=== PATIENT | female | born 1930 | race Caucasian/White ===

== ENCOUNTER 2016-09-13 05:41 | Inpatient (IN) ==
--- NOTE | 2016-09-13 06:21 | PROVIDER DOCUMENTATION ---
HPI-Musculoskeletal Pain/Inj - GENERAL Chief Complaint: General Adult Stated Complaint: JERKING MOVEMENTS ALL OVER Time Seen by Provider: 09/13/16 06:06 - HX OF PRESENT ILLNESS-MUSKULOSKELTAL Nature of Presenting Problem: 85 y/o WF with multiple medical problems presenting to the ED from [facility] with a one day h/o spastic muscle movements. Pt states the "jerking" is sharp and painful, but does not quantify intensity. Pt reports previous episodes of jerking, but son disputes these claims. Pt reports no aggravating or alleviating factors. ROS is pertinent for diarrhea and decreased appetite that is described as longstanding. Quality of Pain: reports: sharp Onset/Duration: 24 hours ago Timing: still present, intermittent Modifying Factors: improves with: nothing Any recent injury?: Yes Review of Systems - Adult - REVIEW OF SYSTEMS - ADULT Constitutional: reports: other (decreased appetite) Eyes: reports: no symptoms reported Ears, Nose, Mouth & Throat: reports: no symptoms reported Cardiovascular: reports: no symptoms reported Respiratory: reports: no symptoms reported Gastrointestinal: reports: no symptoms reported Genitourinary: reports: no symptoms reported Musculoskeletal: reports: other Integumentary: reports: no symptoms reported Neurological: reports: other (spastic jerking) Psychiatric: reports: no symptoms reported Endocrine: reports: no symptoms reported Hematologic/Lymphatic: reports: no symptoms reported Allergic/Immunologic: reports: no symptoms reported Past History - Adult - PAST MEDICAL HISTORY-ADULT Review of Records: reports: Old Records Reviewed, Nursing Assessment Review, Medications Reviewed Major Childhood Illnesses: reports: denies history Cardiovascular: reports: cardiac disease, HTN, hyperlipidemia, AL, pacemaker Respiratory: reports: denies history Gastrointestinal: reports: denies history Obstetrical/Gynecological: reports: denies history Genitourinary: reports: denies history Musculoskeletal: reports: arthritis, other Neurological: reports: dementia, TIA, other Psychiatric: reports: depression Endocrine/Immune: reports: denies history Other Conditions: reports: denies history - PRIOR SURGERIES/PROCEDURES Surgical/Procedure History: reports: pacemaker, other - IMMUNIZATION STATUS Childhood Immunizations: See Nurse Assessment Flu Vaccine: See Nurse Assessment - FAMILY HISTORY Family History: reviewed, not pertinent - SOCIAL HISTORY Smoking: denies Substance Use: none/never Alcohol Use Frequency: never Living Situation: care facility Physical Exam-Injury Related - Physical Exam-Injury Related Initial Vital Signs Reviewed: Yes General Appearance: appears well, alert, no apparent distress, other ( generalized spastic jerking noted). negative: slow to respond, obtunded Eyes: PERRL/EOMI, pink conjunctivae. negative: sclera injected, scleral icterus Head, Ears, Nose, Mouth & Throat: normocephalic/atraumatic, moist mucous membranes. negative: pharyngeal erythema, tonsillar exudate Neck: non-tender, full range of motion, supple. negative: pain on movement, swelling Respiratory: chest non-tender, lungs clear, normal breath sounds. negative: crackles, rales, rhonchi, stridor, wheezing Cardiovascular: normal peripheral pulses, regular rate, rhythm. negative: irregularly irregular Chest/Breast: no tenderness, other (cardiac device at left anterior chest) Abdominal Exam: normal bowel sounds, non tender, soft. negative: distended, guarding, rigid, rebound, tenderness Female Genitalia/Pelvic Exam: deferred Rectal Exam: deferred Lymphatic: no adenopathy. negative: cervical node tenderness, enlargement Extremity: negative: deformity, erythema, pulse deficit Integumentary: normal color, warm/dry, blanching. negative: crepitus Psych/Mental Status: normal mood/affect, normal thought content, normal thought process, oriented x 3. negative: anxious, paranoid, tearful - Glascow Coma Score Best Eye Response (Goddard): (4) open spontaneously Best Verbal Response (Ankit): (5) oriented Best Motor Response (Ankit): (6) obeys commands Progress - PLAN OF CARE/RESULTS Progress/Plan/Lab Results: Vital Signs - 8 hr 09/13/16 08:42 09/13/16 09:32 09/13/16 11:27 Temperature 98.1 F Pulse Rate 52 L 52 L 52 L Respiratory Rate 17 16 16 Blood Pressure 153/58 142/74 142/57 O2 Sat by Pulse Oximetry 97 98 99 09/13/16 12:22 Temperature Pulse Rate 64 Respiratory Rate 17 Blood Pressure 128/55 O2 Sat by Pulse Oximetry 96 Laboratory Results - last 24 hr 09/13/16 09/13/16 09/13/16 05:45 05:45 05:45 WBC 7.75 RBC 3.89 L Hgb 11.7 L Hct 35.0 L MCV 90.0 MCH 30.1 MCHC 33.4 RDW Std Deviation 13.8 Plt Count 263 MPV 11.3 H Immature Gran % (Auto) 0.3 Neut % (Auto) 71.0 Lymph % (Auto) 18.2 L Dolores % (Auto) 7.7 Eos % (Auto) 2.5 Baso % (Auto) 0.3 Immature Gran # (Auto) 0.02 Neut # (Auto) 5.51 Lymph # (Auto) 1.41 Dolores # (Auto) 0.60 H Eos # (Auto) 0.19 Baso # (Auto) 0.02 Sodium 145 Potassium 3.0 L Chloride 106 Carbon Dioxide 20 L Anion Gap 19 BUN 34 H Creatinine 1.3 H Estimated GFR/1.73 m2 39 BUN/Creatinine Ratio 26 Glucose 94 Calculated Osmolality 296 Calcium 9.6 Magnesium Total Bilirubin 0.33 AST 11 ALT 9 L Alkaline Phosphatase 74 Total Protein 6.7 Albumin 3.7 Globulin 3.0 Albumin/Globulin Ratio 1.2 TSH 1.40 Free T4 1.32 Urine Source Urine Color Urine Turbidity Urine pH Ur Specific [place] Urine Protein Ur Glucose (Stick) Ur Ketones (Stick) Urine Blood Urine Nitrite Urine Bilirubin Urobilinogen Dipstick Urine Leukocytes Urine WBC (Auto) Urine RBC (Auto) U Epithel Cells (Auto) Urine Bacteria (Auto) 09/13/16 09/13/16 05:45 07:52 WBC RBC Hgb Hct MCV MCH MCHC RDW Std Deviation Plt Count MPV Immature Gran % (Auto) Neut % (Auto) Lymph % (Auto) Dolores % (Auto) Eos % (Auto) Baso % (Auto) Immature Gran # (Auto) Neut # (Auto) Lymph # (Auto) Dolores # (Auto) Eos # (Auto) Baso # (Auto) Sodium Potassium Chloride Carbon Dioxide Anion Gap BUN Creatinine Estimated GFR/1.73 m2 BUN/Creatinine Ratio Glucose Calculated Osmolality Calcium Magnesium 1.7 Total Bilirubin AST ALT Alkaline Phosphatase Total Protein Albumin Globulin Albumin/Globulin Ratio TSH Free T4 Urine Source CLEAN CATCH Urine Color YELLOW Urine Turbidity CLEAR Urine pH 6.0 Ur Specific [place] 1.009 Urine Protein NEGATIVE Ur Glucose (Stick) NEGATIVE Ur Ketones (Stick) NEGATIVE Urine Blood NEGATIVE Urine Nitrite NEGATIVE Urine Bilirubin NEGATIVE Urobilinogen Dipstick NORMAL Urine Leukocytes LARGE A Urine WBC (Auto) TNTC A Urine RBC (Auto) <10 U Epithel Cells (Auto) <10 Urine Bacteria (Auto) NEGATIVE Orders Category Date Time Status CHEST-PORTABLE [RAD] Stat Exams 09/13/16 06:15 Draft CBC WITH DIFF [HEME] Stat Lab 09/13/16 05:45 Completed CMP [COMPREHENSIVE METABOLIC PANEL] [CHEM] Stat Lab 09/13/16 05:45 Completed FREE T4 Stat Lab 09/13/16 05:45 Completed MAGNESIUM [CHEM] Stat Lab 09/13/16 05:45 Completed TSH Stat Lab 09/13/16 05:45 Completed URINALYSIS W/POSS RFLX CULT-1 [URINALYSIS] Stat Lab 09/13/16 07:52 Completed URINE CULTURE [RM] Routine Lab 09/13/16 08:47 Received Potassium Chloride E.r. [Klor-Con] Med 09/13/16 07:38 Discontinued 20 meq PO NOW ONE EKG [EKG] Stat Ther 09/13/16 06:04 Draft Result Diagrams: 09/13/16 05:45 09/13/16 05:45 - EKG 1 Time of EKG reading by physician:: 06:10 EKG Read and Signed by:: Andrea Deleon Jr Rate: 50 Rhythm: AV dual - paced [place]: normal [place] Interval: normal ST Wave: normal - CONSULTS/PCP/HOSPITALIST Notification #1 *Consult/PCP/Hospitalist*: Dr. Cowart Time Discussed: 14:25 Consult Disposition: Admit Departure - Departure Time of Disposition Decision: 14:26 DIAGNOSIS: Extrapyramidal and movement disorder, Hypokalemia, Abnormal urinalysis Disposition: ADMITTED INPATIENT 09 Certified Medical Emergency: Emergent Condition: Good Referrals and Follow-Ups: Yusra Rose MD [Primary Care Provider] -
--- NOTE | 2016-09-13 06:26 | EKG Report ---
Test Performed on : 09/13/2016 06:10:17 AM Test Reason : Bradycardia/Paced Rhythm Blood Pressure : / mmHG Vent. Rate : 050 BPM Atrial Rate : 050 BPM P-R Int : 138 ms QRS Dur : 138 ms QT Int : 492 ms P-R-T Axes : 000 -68 041 degrees QTc Int : 448 ms AV dual-paced rhythm with occasional ventricular-paced complexes Abnormal ECG When compared with ECG of 18-JUL-2016 14:02, Electronic ventricular pacemaker has replaced Sinus rhythm. Unconfirmed Result
[2016-09-13 07:06] LABS: MANUAL DIFF NEEDED? NO
[2016-09-13 07:09] LABS: BASO% 0.3 % (0.0-0.8); EOS# 0.19 X1000 (0.0-0.7); EOS% 2.5 % (0.0-10.0); HEMOGLOBIN 11.7 g/dL (12.0-16.0); IMM GRAN# 0.02 X1000 (0.0-0.04); IMM GRAN% 0.3 % (0.0-0.5); LYMPH# 1.41 X1000 (1.2-3.4); LYMPH% 18.2 % (20.5-51.1); MCH 30.1 PG (27-31); MCHC 33.4 g/dL (33-37); MONO% 7.7 % (1.7-9.3); MPV 11.3 FL (7.4-10.4); PLT 263 X1000 (130-400); RBC 3.89 XMIL (4.2-5.4)
[2016-09-13 07:35] LABS: ALBUMIN 3.7 g/dL (3.5-5.0); CALCIUM 9.6 mg/dL (8.8-10.2); TOTAL BILIRUBIN 0.33 mg/dL (0.20-1.00); TOTAL PROTEIN 6.7 g/dL (6.3-8.3)
[2016-09-13] MEDS ORDERED: KLOR-CON PO ONE (07:38)
[2016-09-13 07:43] LABS: FREE T4 1.32 ng/dL (0.93-1.70)
[2016-09-13 08:20] LABS: URINE MICRO REVIEW NEEDED? NO; URINE SOURCE CLEAN CATCH
[2016-09-13 08:34] LABS: BILIRUBIN URINE NEGATIVE (NEGATIVE); BLOOD URINE NEGATIVE (NEGATIVE); COLOR YELLOW; GLUCOSE URINE NEGATIVE (NEGATIVE); LEUKOCYTES URINE LARGE (NEGATIVE); NITRITE URINE NEGATIVE (NEGATIVE); PROTEIN URINE NEGATIVE (NEGATIVE); SP GRAVITY URINE 1.009; TURBIDITY URINE CLEAR (CLEAR); UROBILINOGEN URINE NORMAL (NORMAL)
[2016-09-13 08:36] LABS: UR EPITHELIAL CELLS <10 /HPF (<10); URINE BACTERIA NEGATIVE /HPF; URINE CULTURE NEEDED? YES; URINE RBC <10 /HPF (<10); URINE WBC TNTC /HPF (<10)
--- NOTE | 2016-09-13 10:28 | Diag Imaging Result Document ---
PROCEDURE NAME: CHEST-PORTABLE - 09/13/2016 SINGLE FRONTAL RADIOGRAPH OF THE CHEST: COMPARISON: 08/28/2016. FINDINGS: There is suggestion of mild fibrosis at the right lung apex that has been stable as compared to a few prior studies. The lungs are clear otherwise. There is no definite pleural fluid collection. Cardiac silhouette and central vasculature are essentially unremarkable. There is a left-sided pacemaker in stable position. IMPRESSION: Stable chest with no definite acute pathology.
[2016-09-13] MEDS: NS 1,000 ML IV SCH (15:26)
[2016-09-13] MEDS ORDERED: NS 1,000 ML ONE (15:32)
[2016-09-13] MEDS: ROCEPHIN 1 GM/NS 1 GM/50 ML IVPB IV SCH (15:40)
[2016-09-13] MEDS ORDERED: ATIVAN IV PRN (16:07)
--- NOTE | 2016-09-13 16:20 | Diag Imaging Result Document ---
PROCEDURE NAME: HEAD W/O CONTRAST - 09/13/[address]: A CT dose reduction protocol was used. COMPARISON: 07/12/2016. FINDINGS: The ventricles and sulci are normal in size and contour. No intracranial mass or hemorrhage. Stable minimal periventricular white matter chronic microvascular disease. IMPRESSION: No acute disease or change from prior. MTDD
[2016-09-13 16:25] LABS: CALCIUM 9.7 mg/dL (8.8-10.2); POTASSIUM 3.1 mmol/L (3.5-5.1)
--- NOTE | 2016-09-13 17:20 | HISTORY AND PHYSICAL ---
PRIMARY CARE PHYSICIAN: Dr. Rose. CHIEF COMPLAINT: Involuntary shaking/seizure activity. HISTORY OF PRESENT ILLNESS: Mrs. Crespo is an 85-year-old female with a history of hypertension, hyperlipidemia, CAD, dementia, glaucoma, recent CVA, sick sinus syndrome status post Bi-V ICD who presents from shelter with involuntary shaking and seizure- like activity. The patient is not accompanied by anybody and she is a poor historian, so history is difficult to obtain. She states that sometime either yesterday or today she started having these involuntary shaking movements. She will clench up and began to shake. This passes within a few seconds but happens multiple times an hour. Indeed while we are talking the patient had these episodes and it is difficult for her to communicate when she would be shaking. She reports that she lost bowel and bladder function earlier today, and she did bite the inside of her mouth. She denies any chest pain or shortness of breath. No lower extremity edema. No recent fever, chills, cough or congestion. When she got to the ER she had labs and diagnostics done. She is mildly anemic with mild renal insufficiency and hypokalemia and UTI. We are ordering a head CT. Otherwise her vitals are stable and she is now going to be admitted. PAST MEDICAL HISTORY: 1. Sick sinus syndrome status post Bi-V ICD. 2. Hyperlipidemia. 3. Hypertension. 4. Nonobstructive coronary disease. 5. Paroxysmal atrial flutter. 6. Depression. 7. Glaucoma. SURGICAL HISTORY: Bi-V ICD. FAMILY HISTORY: Significant for cancer in her mother. SOCIAL HISTORY: She lives in a shelter, [facility] I believe. There is no history of alcohol, tobacco or drug use. She is . ALLERGIES: She is allergic to Bactrim. HOME MEDICATIONS: Norvasc 5 mg b.i.d. Bumex 1 mg daily. Coreg 12.5 mg b.i.d. Lanoxin 125 mg daily. Cardizem CD 180 mg p.o. q.a.m. Donepezil 5 mg daily. Neurontin 300 mg b.i.d. Prinivil 20 mg a.m. Protonix 40 mg b.i.d. Zoloft 50 mg a.m. Zocor 20 mg q.p.m. REVIEW OF SYSTEMS: Ten point review of systems obtained and found to be negative with the exception of the HPI. PHYSICAL EXAMINATION: VITAL SIGNS: Blood pressure is 129/53, heart rate is 64. Respiratory rate is 18, O2 saturation 97% on room air. Temperature is 98.1 degrees. GENERAL: This is an elderly and frail appearing 85-year-old female, lying in the hospital bed in no acute distress. NEUROLOGIC: The patient is awake and she is slightly disoriented, she does not know the date. She follows commands with generalized weakness but nothing focal. She does have multiple periods of drawing up and shaking which happens randomly and lasts only for a few seconds. HEENT: Head is atraumatic and normocephalic. Her pupils are equal, round, reactive to light. Oral mucosa is a bit dry. Trachea is midline. CHEST: Clear to auscultation bilaterally. CV: Regular rate and rhythm. S1, S2 is noted. GI: Soft, nondistended, nontender. Bowel sounds positive. EXTREMITIES: Without edema, clubbing or cyanosis. Pulses are palpable bilaterally. DIAGNOSTIC DATA: Chest x-ray shows stable chest with no definite acute pathology. EKG shows AV pacer. WBC 7.75, hemoglobin 11.7, hematocrit 35, platelet count 263,000. Sodium 145, potassium 3, chloride 106, CO2 20. Anion gap 19. BUN 34, creatinine 1.3, glucose 94, calcium 9.6, magnesium 1.7. LFTs within normal limits. Albumin 3.7, TSH 1.4. UA shows [place] leukocytes and that too numerous to count, WBC. ASSESSMENT AND PLAN: 1. Seizure-like activity: Unclear of the etiology, it is unlikely to be true seizures. She does not seem to be on any medicines that cause extrapyramidal side effects but we are going to check a head CT and consult with Neurology. We will continue IV fluid hydration and treatment of her underlying UTI. 2. Urinary tract infection: Sensitive to Rocephin last time she was here. Organism was E. coli. Will continue Rocephin now and urine cultures are pending. 3. Paroxysmal atrial flutter: She is now AV paced. She is on digoxin, Cardizem and Coreg. We will continue all of these. Check a digoxin level. 4. Acute kidney injury: Creatinine 1.3. We are going to hold off on her Bumex and her lisinopril and add light IV fluid hydration. 5. Anemia: We going to check iron studies and treat accordingly. 6. Deep vein thrombosis prophylaxis will be provided with low-dose Lovenox once her head CT is done and found to be normal. Further recommendations to follow. Dictated by DANI Dailey for Anthony Flores MD cc: DANI Dailey MD [facility]
[2016-09-13 19:06] LABS: IRON SATURATION 23 %; TIBC 288 ug/dL; TOTAL IRON 67 ug/dL (49-151); UNBOUND IRON 221 ug/dL (112-346)
[2016-09-13] MEDS: NEURONTIN PO SCH (21:32)
[2016-09-13] MEDS: COREG PO SCH (21:32)
[2016-09-13] MEDS: NORVASC PO SCH (21:32)
[2016-09-13] MEDS: ZOCOR PO SCH (21:32)
[2016-09-13] MEDS: PROTONIX PO SCH (21:32)
[2016-09-13] MEDS: LOVENOX SUBQ SCH (21:36)
[2016-09-14] MEDS: NS 1,000 ML IV SCH ×2 (00:28→14:21)
[2016-09-14 07:21] LABS: HEMATOCRIT 32.8 % (37.0-47.0); HEMOGLOBIN 11.1 g/dL (12.0-16.0); MCH 30.7 PG (27-31); MCHC 33.8 g/dL (33-37); MCV 90.6 FL (81-99); MPV 10.5 FL (7.4-10.4); RBC 3.62 XMIL (4.2-5.4)
[2016-09-14 07:26] LABS: INR 1.02; PROTIME 10.7 Seconds (9.2-11.7)
[2016-09-14 07:39] LABS: AGAP 15; BUN 22 mg/dL (8-22); CALCIUM 8.9 mg/dL (8.8-10.2); CHLORIDE 110 mmol/L (98-107); COSMO 288; HDL 31 mg/dL (45-65); LDL 135 mg/dL; POTASSIUM 3.2 mmol/L (3.5-5.1); SODIUM 143 mmol/L (136-145); TCO2 18 mmol/L (25-35); TRIGLYCERIDES 176 mg/dL (35-135); VLDL 35 mg/dL
[2016-09-14] MEDS ORDERED: KLOR-CON PO ONE (07:52)
[2016-09-14] MEDS: LANOXIN PO SCH (08:52)
[2016-09-14] MEDS: NEURONTIN PO SCH ×2 (08:52→20:33)
[2016-09-14] MEDS: COREG PO SCH ×2 (08:53→20:33)
[2016-09-14] MEDS: NORVASC PO SCH ×2 (08:53→20:33)
[2016-09-14] MEDS: CARDIZEM CD PO SCH (08:53)
[2016-09-14] MEDS: ZOLOFT PO SCH (08:53)
[2016-09-14] MEDS: PROTONIX PO SCH ×2 (08:53→20:32)
[2016-09-14] MEDS: LOVENOX SUBQ SCH ×2 (08:53→20:33)
[2016-09-14] MEDS: ARICEPT PO SCH (08:53)
[2016-09-14] MEDS ORDERED: DULCOLAX PR ONE (09:00)
[2016-09-14] MEDS: MIRALAX PO SCH (11:30)
--- NOTE | 2016-09-14 14:25 | PROGRESS NOTE ---
DATE: 09/14/2016 SUBJECTIVE: This patient states that she is feeling better. Family members at the bedside. She is not complaining of nausea or vomiting. No diarrhea. She has been complaining of constipation. OBJECTIVE: Vital Signs: Temperature 97.7 degrees, pulse 71, respiratory rate 18, blood pressure 155/51, oxygen saturation 100% on room air. HEENT: Head normocephalic. No trauma. PERRLA. Neck: Supple. No JVD. No masses. Central trachea. Chest: Clear to auscultation. No wheezing. No rales. Cardiovascular: RRR. No murmurs. Abdomen: Soft, nontender, nondistended. No hepatosplenomegaly. Extremities: No edema. No clubbing. No cyanosis. Neurological: The patient is alert and oriented x3. No focal neurological deficits. LABORATORY: WBC 6.6, hemoglobin 11.1, hematocrit 32.8, platelets 264,000. Sodium 143, potassium 3.2, chloride 110, bicarbonate 18, BUN 22, creatinine 0.9, glucose 91, calcium 8.9. ASSESSMENT AND PLAN: 1. Seizure-like activity, unclear of the etiology. I do not think this patient has been having seizures. This patient has been dehydrated and also hypokalemic, questionable extrapyramidal side effects, but we are going to check the medications again and Neurology will evaluate this patient. 2. Urinary tract infection sensitive to Rocephin last time she was here. We will continue with the same antibiotics. 3. Paroxysmal atrial flutter. She is now AV paced. She is on digoxin, Cardizem, and Coreg. I am going to continue these medications. Digoxin level is normal. 4. Acute kidney injury, resolved. 5. Anemia. Aware. Continue to monitor. 6. Deep vein thrombosis prophylaxis. We will continue with the same treatment. cc: Anthony Flores MD
--- NOTE | 2016-09-14 14:55 | CONSULTATION ---
DATE OF CONSULTATION: 09/14/2016 Ms. Crespo is 85 years old and she was admitted with some apparent involuntary shaking raising question of seizure. History from the patient this morning is that she thinks she started a medicine and she had some shaking and that has all resolved now. She has baseline dementia and history she provides is considered not certain. Review of the admission record is that she had apparent involuntary shaking at the intermediate. This was intermittent, happening several times in an hour, apparently not associated with unconsciousness but there was either inability to speak or difficulty with speech during these episodes. Based on review of old records, I do not see any past history of seizure. I saw her in June this year with history of falling and she had markedly apractic gait then. There were no focal neurologic features. She has been taking donepezil 5 mg daily chronically. There was suggestion to increase donepezil dose a few months ago but I see donepezil 5 mg daily listed again as her preadmission dose this time. There is past history of dementia as above, ischemic heart disease, paroxysmal atrial flutter, dyslipidemia, hypertension, sick sinus syndrome. Lab here showed mild anemia, BUN initially 34 but down to 22. Noncontrast CT of the head showed usual changes but nothing new. Systolic blood pressures have ranged from 120s to 150s. Her heart rate has ranged from 50-100. She has been afebrile. On exam, Ms. Crespo is awake, alert, attentive, bright, cheerful and appropriate. Her speech is not dysarthric. Language function is intact on brief bedside testing. I did not test her cognitive function today. Head and neck are unremarkable. There is no meningismus. She has good power in the limbs. Tone is equal in the arms and legs. She did well on finger -to-nose testing bilaterally. I did not test her gait. She has full visual field tested grossly by confrontational finger counting. Horizontal extraocular movements are full. She has limited upgaze typical for age. Facial motility is a little bit diminished bilaterally , but symmetric. Tongue is midline. IMPRESSION: History of apparent involuntary shaking in the limbs. I have not witnessed 1 of these episodes. Impression is that this may not be seizure since she may have had generalized shaking in the limbs without altered consciousness. I will order EEG. No other suggestion right now. Thanks for asking me to see Ms. Crespo. cc: Noel Payne III, MD MTDD
[2016-09-14] MEDS: ROCEPHIN 1 GM/NS 1 GM/50 ML IVPB IV SCH (15:22)
--- NOTE | 2016-09-14 16:34 | EEG REPORT ---
DATE: 09/14/2016 COMMENT: This is a digitally recorded EEG on an 85-year-old patient with baseline dementia, recent involuntary limb jerking, question of seizure. FINDINGS: During waking, medium amplitude 7-8 Hz posterior rhythm is present bilaterally with uncertain reactivity to eye opening. Background contains polymorphic and rhythmic theta frequencies over the frontal and central regions symmetrically. Photic stimulation did not significantly alter the record. Drowsing occurred briefly. Stage 2 sleep was not recorded. No definite epileptiform discharge was identified. INTERPRETATION: Abnormal EEG because of mild generalized slowing. CORRELATION: This is indicative of a diffuse encephalopathy and is nonspecific. The absence of epileptiform discharges on a single EEG does not exclude a clinical diagnosis of seizures, but there is nothing on this record to suggest a seizure as the reason for her recent symptoms. cc: Noel Payne III, MD
[2016-09-14] MEDS: ZOCOR PO SCH (20:33)
[2016-09-15] MEDS: NS 1,000 ML IV SCH (05:22)
[2016-09-15 07:07] LABS: MANUAL DIFF NEEDED? NO
[2016-09-15 07:18] LABS: BASO% 0.2 % (0.0-0.8); EOS# 0.16 X1000 (0.0-0.7); HEMATOCRIT 30.2 % (37.0-47.0); HEMOGLOBIN 9.9 g/dL (12.0-16.0); LYMPH# 1.03 X1000 (1.2-3.4); LYMPH% 19.3 % (20.5-51.1); MCH 29.6 PG (27-31); MCHC 32.8 g/dL (33-37); MCV 90.4 FL (81-99); MONO# 0.49 X1000 (0.11-0.59); MONO% 9.2 % (1.7-9.3); MPV 10.5 FL (7.4-10.4); NEUT% 68.3 % (42.2-75.2); PLT 228 X1000 (130-400); RBC 3.34 XMIL (4.2-5.4)
[2016-09-15 07:20] LABS: CALCIUM 8.9 mg/dL (8.8-10.2); POTASSIUM 3.6 mmol/L (3.5-5.1)
[2016-09-15] MEDS: CARDIZEM CD PO SCH (08:09)
[2016-09-15] MEDS: NEURONTIN PO SCH ×2 (08:10→21:26)
[2016-09-15] MEDS: MIRALAX PO SCH (08:10)
[2016-09-15] MEDS: ZOLOFT PO SCH (08:10)
[2016-09-15] MEDS: LOVENOX SUBQ SCH ×2 (08:10→20:30)
[2016-09-15] MEDS: ARICEPT PO SCH (08:10)
[2016-09-15] MEDS: COREG PO SCH ×2 (08:10→21:26)
[2016-09-15] MEDS: NORVASC PO SCH ×2 (08:10→21:26)
[2016-09-15] MEDS: PROTONIX PO SCH ×2 (08:11→21:26)
[2016-09-15] MEDS: LANOXIN PO SCH (08:13)
[2016-09-15] MEDS: MAXIPIME 0.5 GM in NS 50 ML IV SCH ×2 (10:58→21:25)
--- NOTE | 2016-09-15 15:40 | PROGRESS NOTE ---
DATE: 09/15/2016 SUBJECTIVE: Today, Ms. Crespo is referred to be doing fine. She has no complaints. Per the nursing staff, there were no acute changes. OBJECTIVE: Vital Signs: Blood pressure is 123/71, pulse of 52, respirations 18, temperature is 98.6 degrees. General: Ms. Crespo is an 85-year-old female. She was in bed in no distress. HEENT: Mucosa is pink and moist. Anicteric. Acyanotic. Neck is supple. Chest was clear. Cardiovascular: Regular rate and rhythm. No murmurs. Abdomen is soft. Extremities: No pedal edema. 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 LABORATORY DATA: WBC is 5.33, hemoglobin is 9.9, platelet count of 228,000. Chemistry: Sodium is 147, potassium is 3.6, chloride is 116. Bicarb is 18. Urine culture is positive for Citrobacter freundii which is resistant to the ceftriaxone that the patient was on. ASSESSMENT: 1. Generalized muscular movements which etiology is not clear. We think this is probably related to infection. Patient has been evaluated by Neurology. They do not think this was seizure activity. 2. Citrobacter freundii urinary tract infection. This is resistant to Rocephin. We will, therefore, switch the antibiotic to cefepime. We were going to levo but, because of that concern for seizures, we did not want to put her on it as it would lower her seizure threshold. 3. Paroxysmal atrial fibrillation noted. 4. Acute kidney injury, improved. 5. Anemia of chronic disease. 6. [place] acidosis with elevated sodium. We are going to change her baseline hydration fluid to D5 half normal saline to address some of the hyperchloremia. 7. We anticipate the patient being discharged to a care home on Saturday. cc: Wilbur Antunez MD
[2016-09-15] MEDS: D5 1/2 NS 1,000 ML IV SCH (16:35)
[2016-09-15] MEDS: ZOCOR PO SCH (21:26)
[2016-09-16 07:35] LABS: HEMATOCRIT 31.5 % (37.0-47.0); HEMOGLOBIN 10.3 g/dL (12.0-16.0); MCH 29.9 PG (27-31); MCHC 32.7 g/dL (33-37); MCV 91.6 FL (81-99); MPV 10.4 FL (7.4-10.4); RBC 3.44 XMIL (4.2-5.4)
[2016-09-16 08:00] LABS: AGAP 12; BUN 7 mg/dL (8-22); CALCIUM 8.8 mg/dL (8.8-10.2); CHLORIDE 115 mmol/L (98-107); COSMO 286; POTASSIUM 3.1 mmol/L (3.5-5.1); SODIUM 145 mmol/L (136-145); TCO2 18 mmol/L (25-35)
[2016-09-16] MEDS ORDERED: KLOR-CON PO ONE (08:44)
[2016-09-16] MEDS: ARICEPT PO SCH (09:39)
[2016-09-16] MEDS: COREG PO SCH ×2 (09:39→21:32)
[2016-09-16] MEDS: NEURONTIN PO SCH ×2 (09:39→21:32)
[2016-09-16] MEDS: CARDIZEM CD PO SCH (09:39)
[2016-09-16] MEDS: PROTONIX PO SCH ×2 (09:40→21:31)
[2016-09-16] MEDS: ZOLOFT PO SCH (09:40)
[2016-09-16] MEDS: LANOXIN PO SCH (09:40)
[2016-09-16] MEDS: NORVASC PO SCH ×2 (09:40→21:32)
[2016-09-16] MEDS: MIRALAX PO SCH (09:41)
[2016-09-16] MEDS: LOVENOX SUBQ SCH ×2 (09:41→21:32)
[2016-09-16] MEDS: D5 1/2 NS 1,000 ML IV SCH (09:41)
[2016-09-16] MEDS: MAXIPIME 0.5 GM in NS 50 ML IV SCH ×2 (10:50→21:32)
[2016-09-16] MEDS: VITAMIN D PO SCH (17:01)
--- NOTE | 2016-09-16 18:20 | PROGRESS NOTE ---
DATE: 09/13/2016 SUBJECTIVE: Today Ms. Crespo referred to be doing better. According to her, she was just feeling extremely weak at home and reached a point that she could not walk and that is why she came to the hospital. But today she refers to be doing a whole lot better. She has not been able to get up from bed yet. I think she will need some assistance. OBJECTIVE: Vital signs: Blood pressure is 143/51, pulse of 50, respirations 16, temperature is 98.4 degrees. Patient was saturating 100% on room air. General: Ms. Crespo is an 85-year-old female. She is in bed, no distress. HEENT: Mucosa is pink and moist. Anicteric. Acyanotic. Neck: Supple. Chest: Clear. Cardiovascular: Regular rate and rhythm. There are no murmurs, no rubs, no gallops. Abdomen: Soft. Extremities: No pedal edema. 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 She is oriented x3. She follows some basic commands. LABORATORY DATA: WBC is. 4.92, hemoglobin is 10.3, platelet count of 224,000. Chemistry is reviewed. Potassium is 3.1, chloride is 115, sodium is 145. Vitamin D level which was checked this morning is 13.1, which is low. ASSESSMENT: 1. Generalized weakness at home. 2. Seizure-like activity on presentation, which I think is probably due to underlying UTI. This has resolved. The patient has not had any more abnormal muscular movements over here. 3. Citrobacter freundii urinary tract infection. Patient is on cefepime. She will get 3 doses of this IV antibiotic to clear the urinary tract infection. 4. Paroxysmal atrial fibrillation. Currently rate controlled. 5. Acute kidney injury, resolved. 6. Anemia of chronic disease. 7. Mild hypernatremia with hyperchloremia. We switch the fluid to D5 half normal saline. There is gradual improvement. We will continue with this. 8. Vitamin D deficiency. I think this is also part of her general weakness. Will start replacing this. Hopefully the patient should start feeling better. 9. Mild hypokalemia. Will replace that. PLAN: So in general we are going to get PT to evaluate the patient either today or tomorrow and see if we can get her discharged either home or to a rehab. I anticipate the patient being discharged maybe tomorrow. cc: Wilbur Antunez MD
[2016-09-16] MEDS: ZOCOR PO SCH (21:31)
[2016-09-17] MEDS: D5 1/2 NS 1,000 ML IV SCH (06:12)
[2016-09-17 07:36] LABS: AGAP 14; BUN 4 mg/dL (8-22); CALCIUM 8.9 mg/dL (8.8-10.2); CHLORIDE 114 mmol/L (98-107); COSMO 282; POTASSIUM 3.8 mmol/L (3.5-5.1); SODIUM 143 mmol/L (136-145); TCO2 15 mmol/L (25-35)
[2016-09-17 07:48] VITALS: BP 149/59
[2016-09-17] MEDS ORDERED: SODIUM BICARBONATE PO SCH (09:00)
[2016-09-17] MEDS: ARICEPT PO SCH (09:01)
[2016-09-17] MEDS: PROTONIX PO SCH (09:01)
[2016-09-17] MEDS: MIRALAX PO SCH (09:01)
[2016-09-17] MEDS: ZOLOFT PO SCH (09:01)
[2016-09-17] MEDS: CARDIZEM CD PO SCH (09:01)
[2016-09-17] MEDS: VITAMIN D PO SCH (09:02)
[2016-09-17] MEDS: NORVASC PO SCH (09:02)
[2016-09-17] MEDS: NEURONTIN PO SCH (09:02)
[2016-09-17] MEDS: LANOXIN PO SCH (09:03)
[2016-09-17] MEDS: COREG PO SCH (09:03)
[2016-09-17] MEDS: LOVENOX SUBQ SCH (09:06)
[2016-09-17] MEDS: MAXIPIME 0.5 GM in NS 50 ML IV SCH (09:38)
--- NOTE | 2016-09-17 13:57 | PROGRESS NOTE ---
DATE: 09/17/2016 PATIENT LOCATION: Room [address]A. Ms. Crespo has had a stable course over the weekend. This morning, she told me she does not feel quite as good as a few days ago but she remains awake, alert, and she is much improved compared to her presentation. Her EEG 09/14/2016 showed generalized slowing but nothing focal and nothing to suggest a seizure. I do not have any new suggestion from a neurologic standpoint today. Again, I would consider increasing donepezil dose to 10 mg daily unless she has already tried that and not tolerated that dose. Next step would be to consider adding memantine. Thanks for asking me to see Ms. Crespo. cc: MD DAGO Siddiqi III
--- NOTE | 2016-09-18 12:39 | DISCHARGE SUMMARY ---
ADMISSION DATE: 09/13/2016 DISCHARGE DATE: 09/17/2016 CONSULTATIONS: Dr. Noel Payne III with Neurology. PERTINENT PROCEDURES: 1. Head CT showed no acute disease or change from prior. 2. EEG was abnormal because of mild generalized slowing indicative of diffuse encephalopathy and was nonspecific. DISCHARGE DIAGNOSES: 1. Generalized weakness at home. Patient will be discharged home with home health. 2. Seizure-like activity on presentation, believed secondary to underlying urinary tract infection, resolved. Underwent a negative EEG, was also seen by Neurology. 3. Citrobacter freundii urinary tract infection. Patient received several doses of cefepime IV for a full course of treatment. 4. Paroxysmal atrial fibrillation, rate controlled. 5. Acute kidney injury, resolved. 6. Anemia of chronic disease, stable. 7. Mild hyponatremia with hyperchloremia, resolved. 8. Vitamin D deficiency. The patient was started on vitamin D. 9. Mild hypokalemia, resolved. HOSPITAL COURSE: Briefly, Ms Crespo is an 85-year-old female with history of hypertension, hyperlipidemia, CAD, dementia, glaucoma, recent CVA, and sick sinus syndrome, status post Bi-V ICD, who presented to the correction with involuntary shaking and seizure-like activity. The patient stated that she started having involuntary shaking movements, where she would clench up and began to shake. It passed within a few seconds, but it happened multiple times an hour. While she was being evaluated in the emergency department, she did have these episodes that made it difficult to communicate with her when she would be shaking. She did report that she had loss of bowel and bladder function earlier in the day and that she bit the inside of her mouth. Laboratory data that was done in the emergency department showed her mildly anemic with mild renal insufficiency, hypokalemia, and a UTI. Since CT did not show anything acute or a change from prior, she was admitted with a Neurology consult. She was started on IV fluids as well as started on IV antibiotics for her UTI. A urine culture was obtained. Due to her kidney injury, they were holding her Bumex as well as her lisinopril. She was getting IV hydration. Patient underwent an EEG with Dr. Payne. It was abnormal because of mild generalized slowing indicative of diffuse encephalopathy and was nonspecific. Dr. Payne's impression was that these may not be seizures, since she is without altered consciousness. EEG confirmed, with no other suggestions at this point. After Dr. Antunez spoke with the patient, the patient was feeling extremely weak at home and reached the point that she could not walk, and that is why she came to the hospital. She does refer to doing a whole lot better. She did have a Physical Therapy consult. Seismograph Chief was consulted for rehabilitation; however, patient refused for rehabilitation and she would like to go home with [facility]. As she has a walker and she also lives with her son, the patient will be discharged back home. VITAL SIGNS: Temperature is 98.7 degrees, heart rate 58, respirations 16, blood pressure 149/59, O2 is 99% on room air. DISCHARGE MEDICATIONS: 1. Norvasc 5 mg p.o. b.i.d. 2. Bumex 1 mg p.o. daily. 3. Coreg 12.5 mg p.o. b.i.d. 4. Vitamin D3, 1000 units p.o. daily. 5. Digoxin 125 mcg p.o. daily. 6. Cardizem CD 180 mg p.o. q.a.m. 7. Donepezil 5 mg p.o. daily. 8. Neurontin 300 mg p.o. b.i.d. 9. Prinivil 20 mg p.o. q.a.m. 10. Protonix 40 mg p.o. b.i.d. 11. Zoloft 50 mg p.o. q.a.m. 12. Zocor 20 mg p.o. q.p.m. 13. Sodium bicarbonate 650 mg p.o. at BT. FOLLOW-UP: Patient is being discharged home with home health as well as her son, whom she lives with. Patient will follow up with her primary care physician in 1 week, Dr. Rose. Patient to return to the ED for any worsening of symptoms. DISCHARGE TIME: Thirty minutes. Dictated by DANI Miranda for Wilbur Antunez MD cc: MD Yusra Gutierrez MD
== END 2016-09-17 15:16 | disposition home health service (06) ==
LOC: ED 05:41 → 3N 18:04 → SUATTDRO 18:04
PROVIDERS: ATTEND Internal Medicine

== ENCOUNTER 2016-09-25 20:07 | Inpatient (IN) ==
[2016-09-25] MEDS ORDERED: ASPIRIN PO STA (20:46)
[2016-09-25 21:45] LABS: MANUAL DIFF NEEDED? NO
[2016-09-25 21:49] LABS: BASO% 0.1 % (0.0-0.8); EOS# 0.06 X1000 (0.0-0.7); EOS% 0.7 % (0.0-10.0); HEMATOCRIT 36.4 % (37.0-47.0); HEMOGLOBIN 12.4 g/dL (12.0-16.0); MCH 30.7 PG (27-31); MCHC 34.1 g/dL (33-37); MCV 90.1 FL (81-99); MONO# 0.55 X1000 (0.11-0.59); MONO% 6.1 % (1.7-9.3); MPV 10.6 FL (7.4-10.4); NEUT% 83.1 % (42.2-75.2); PLT 213 X1000 (130-400); RBC 4.04 XMIL (4.2-5.4)
[2016-09-25 22:05] LABS: INR 1.02; PROTIME 10.7 Seconds (9.2-11.7)
[2016-09-25 22:08] LABS: ALBUMIN 3.8 g/dL (3.5-5.0); CALCIUM 9.9 mg/dL (8.8-10.2); MAGNESIUM 1.6 mg/dL (1.5-2.7); POTASSIUM 3.4 mmol/L (3.5-5.1); TOTAL BILIRUBIN 0.41 mg/dL (0.20-1.00); TOTAL PROTEIN 6.3 g/dL (6.3-8.3)
[2016-09-25] MEDS ORDERED: LASIX IV ONE (23:02)
--- NOTE | 2016-09-25 23:42 | PROVIDER DOCUMENTATION ---
This chart was entered by Seble De Souza Scribe, acting as scribe for Rafael Cortes MD. HPI-Syncope/Dizziness - General Chief Complaint: Syncope Stated Complaint: ams Time Seen by Provider: 09/25/16 20:11 Source: patient, EMS Allergies/Adverse Reactions: Patient Allergies Allergy/AdvReac Type Severity Reaction Status Date / Time sulfamethoxazole Allergy Unknown Unknown Verified 07/18/16 14:37 [From ] trimethoprim [From ] Allergy Unknown Unknown Verified 07/18/16 14:37 Home Medications: Home Medication List Medication Instructions Recorded Confirmed Last Taken Type Carvedilol [Coreg] 12.5 mg PO BID 02/19/12 09/13/16 09/25/16 17:30 History Gabapentin [Neurontin] 300 mg PO BID 02/19/12 09/13/16 09/25/16 17:30 History Sertraline HCl [Zoloft] 50 mg PO QAM 02/19/12 09/13/16 09/25/16 08:00 History Simvastatin [Zocor] 20 mg PO QPM 12/13/12 09/13/16 09/25/16 17:30 History Pantoprazole Sodium [Protonix] 40 mg PO BID #60 tablet. 06/08/14 09/13/1607/13 17:30 Rx Donepezil HCl 5 mg PO DAILY 06/08/15 09/13/16 09/25/16 08:00 History Amlodipine [Norvasc] 5 mg PO BID #120 tablet 07/16/16 09/13/16 09/25/16 17:30 Rx Bumetanide [Bumex] 1 mg PO DAILY 09/13/16 09/13/16 09/25/16 08:00 History Digoxin [Lanoxin] 125 microgm PO QAM 09/13/16 09/13/16 09/25/16 08:00 History Diltiazem C.d. [Cardizem Cd] 180 mg PO QAM 09/13/16 09/13/16 09/25/16 08:00 History LISINOpril [Prinivil] 20 mg PO QAM 09/13/16 09/13/16 09/25/16 08:00 History Cholecalciferol (Vit D3) [Vitamin 1,000 unit PO DAILY #60 tablet 09/17/1609/25 08:00 Rx D3] Sodium Bicarbonate 650 mg PO BID #30 tablet 09/17/16 09/25/16 17:30 Rx - History of Present Illness-Syncope/Dizzy Nature of Presenting Problem: 85 Y/O F presents to ED with Syncope. Pt was found by EMS this evening near syncope while using the Toilet, Pt states that she ate a piece of cantaloupe which caused her to Vomit and was A&O X1 when found by EMS. In ED pt is fully alert and oriented and able to tell time place, age, name, and birthday. Hx of arthritis. If witnessed syncope, by whom?: son Prior Episodes: reports: no prior history Onset/Duration: reports: this evening Timing: reports: improving Position/Activity at time of episode: reports: sitting Symptoms prior to episode: reports: nausea/vomiting. denies: headache, abdominal pain Context: reports: almost passed out Loss of Consciousness: no loss of consciousness Location of injury. (If syncope resulted in an injury.): reports: none Current Symptoms: reports: none/feels normal Review of Systems - Adult - REVIEW OF SYSTEMS - ADULT Constitutional: denies: chills, fever Eyes: reports: no symptoms reported Ears, Nose, Mouth & Throat: reports: no symptoms reported Cardiovascular: reports: no symptoms reported Respiratory: reports: no symptoms reported Gastrointestinal: reports: vomiting. denies: abdominal pain, diarrhea, nausea Genitourinary: reports: no symptoms reported Musculoskeletal: reports: no symptoms reported Integumentary: reports: no symptoms reported Neurological: reports: syncope (near). denies: dizziness/vertigo, loss of balance Psychiatric: reports: no symptoms reported Endocrine: reports: no symptoms reported Hematologic/Lymphatic: reports: no symptoms reported Allergic/Immunologic: reports: no symptoms reported All Other Systems: Reviewed and Negative Past History - Adult - PAST MEDICAL HISTORY-ADULT Review of Records: reports: Old Records Reviewed, Nursing Assessment Review, Medications Reviewed, Social history reviewed & non-contributory. Major Childhood Illnesses: reports: denies history Cardiovascular: reports: cardiac disease, HTN, hyperlipidemia, [place], pacemaker Respiratory: reports: denies history Gastrointestinal: reports: denies history Obstetrical/Gynecological: reports: denies history Genitourinary: reports: denies history Musculoskeletal: reports: arthritis, other Neurological: reports: dementia, TIA, other Psychiatric: reports: depression Endocrine/Immune: reports: denies history Other Conditions: reports: denies history - PRIOR SURGERIES/PROCEDURES Surgical/Procedure History: reports: pacemaker, other - IMMUNIZATION STATUS Childhood Immunizations: See Nurse Assessment Flu Vaccine: See Nurse Assessment - FAMILY HISTORY Family History: reviewed, not pertinent - SOCIAL HISTORY Smoking: non-smoker Substance Use: none/never Alcohol Use Frequency: never Living Situation: family Physical Exam-General - PHYSICAL EXAM-ADULT Initial Vital Signs Reviewed: Yes - CONSTITUTIONAL General Appearance: appears well, alert, no apparent distress - EYES Eyes: PERRL/EOMI, pink conjunctivae - HEAD, EARS, NOSE, MOUTH & THROAT HENMT: normocephalic/atraumatic, moist mucous membranes, normal ENT inspection, TMs normal, pharynx normal - NECK Neck: non-tender, full range of motion, supple, normal inspection - RESPIRATORY Respiratory: chest non-tender, lungs clear, normal breath sounds - CARDIOVASCULAR Cardiovascular: normal peripheral pulses, regular rate, rhythm - GASTROINTESTINAL (ABDOMEN) Abdominal Exam: normal bowel sounds, non tender, soft - LYMPHATIC Lymphatic: no adenopathy - MUSCULOSKELETAL Back Exam: normal inspection Extremity: normal range of motion - SKIN Integumentary: normal color, normal turgor, warm/dry - PSYCHIATRIC Psych/Mental Status: normal mood/affect, normal thought content, normal thought process, oriented x 3 Progress - PLAN OF CARE/RESULTS Progress/Plan/Lab Results: Vital Signs - 8 hr 09/25/16 20:20 09/25/16 22:23 Temperature 97 F L Pulse Rate 50 L 56 L Respiratory Rate 18 20 Blood Pressure 110/49 138/66 O2 Sat by Pulse Oximetry 96 99 Laboratory Results - last 24 hr 09/25/16 09/25/16 09/25/16 21:30 21:30 21:30 WBC 8.99 RBC 4.04 L Hgb 12.4 Hct 36.4 L MCV 90.1 MCH 30.7 MCHC 34.1 RDW Std Deviation 14.1 Plt Count 213 MPV 10.6 H Immature Gran % (Auto) 0.0 Neut % (Auto) 83.1 H Lymph % (Auto) 10.0 L Luce % (Auto) 6.1 Eos % (Auto) 0.7 Baso % (Auto) 0.1 Immature Gran # (Auto) 0.00 Neut # (Auto) 7.47 H Lymph # (Auto) 0.90 L Luce # (Auto) 0.55 Eos # (Auto) 0.06 Baso # (Auto) 0.01 PT INR PTT (Actin FS) Sodium 142 Potassium 3.4 L Chloride 101 Carbon Dioxide 26 Anion Gap 15 BUN 18 Creatinine 1.4 H Estimated GFR/1.73 m2 36 BUN/Creatinine Ratio 13 Glucose 133 H Calculated Osmolality 287 Calcium 9.9 Magnesium 1.6 Total Bilirubin 0.41 AST 12 ALT 10 Alkaline Phosphatase 71 Creatine Kinase 18 L Troponin T Tee-T-Fcxoxaauqti Pept 1873 H Total Protein 6.3 Albumin 3.8 Globulin 2.5 Albumin/Globulin Ratio 1.5 09/25/16 09/25/16 21:30 21:30 WBC RBC Hgb Hct MCV MCH MCHC RDW Std Deviation Plt Count MPV Immature Gran % (Auto) Neut % (Auto) Lymph % (Auto) Luce % (Auto) Eos % (Auto) Baso % (Auto) Immature Gran # (Auto) Neut # (Auto) Lymph # (Auto) Luce # (Auto) Eos # (Auto) Baso # (Auto) PT 10.7 INR 1.02 PTT (Actin FS) 21.0 L Sodium Potassium Chloride Carbon Dioxide Anion Gap BUN Creatinine Estimated GFR/1.73 m2 BUN/Creatinine Ratio Glucose Calculated Osmolality Calcium Magnesium Total Bilirubin AST ALT Alkaline Phosphatase Creatine Kinase Troponin T 0.028 Msk-P-Ooqphzgukan Pept Total Protein Albumin Globulin Albumin/Globulin Ratio Orders Category Date Time Status Cardiac Monitoring DIRECTED Care 09/25/16 20:46 Active Oxygen Therapy- ED Nursing DIRECTED Care 09/25/16 20:46 Active Saline Loc NOW Care 09/25/16 20:46 Active CBC WITH ELECTRONIC DIFF [HEME] Stat Lab 09/25/16 21:30 Completed CK PROFILE [SP CHEM] Stat Lab 09/25/16 21:30 Completed COMPREHENSIVE METABOLIC PANEL [CHEM] Stat Lab 09/25/16 21:30 Completed MAGNESIUM [CHEM] Stat Lab 09/25/16 21:30 Completed PRO B-NATRIURETIC PEPTIDE Stat Lab 09/25/16 21:30 Completed PROTIME WITH INR [COAG] Stat Lab 09/25/16 21:30 Completed PTT [COAG] Stat Lab 09/25/16 21:30 Completed TROPONIN T Stat Lab 09/25/16 21:30 Completed Aspirin Med 09/25/16 20:46 Discontinued 325 mg PO STAT STA Furosemide [Lasix] Med 09/25/16 23:02 Discontinued 80 mg IV NOW ONE EKG [EKG] Stat Ther 09/25/16 20:19 Ordered EKG [EKG] Stat Ther 09/25/16 20:46 Ordered Transfer/Admit Order [TRANSFER] Routine Transfer 09/25/16 23:36 Ordered Result Diagrams: 09/25/16 21:30 09/25/16 21:30 - EKG 1 Time of EKG reading by physician:: 20:18 EKG Read and Signed by:: Rafael Cortes EKG Interpretation (*Must complete 3 of following elements*): Abnormal Rate: 50 Rhythm: AV dual paced rhythm Comments: Abnormal ECG Departure - Departure Time of Disposition Decision: 23:39 DIAGNOSIS: Symptomatic bradycardia Disposition: ADMITTED INPATIENT 09 Certified Medical Emergency: Emergent Condition: Stable Referrals and Follow-Ups: Cody Connolly MD [Primary Care Provider] - - Critical Care Note This patient required my direct & personal management of CC.: Yes This chart was documented by the indicated scribe, (Seble De Souza Scribe) and accurately reflects the services I performed and decisions made by me, Rafael Cortes MD, as attested by the provider's signature.
--- NOTE | 2016-09-26 02:30 | HISTORY AND PHYSICAL ---
PRIMARY CARE PHYSICIAN: Dr. Rose. CHIEF COMPLAINT: The patient found unresponsive on the toilet. HISTORY OF PRESENTING ILLNESS: This is an 85-year-old female, with a history of hypertension and sick sinus syndrome, status post ICD, hyperlipidemia and dementia, who was brought to the emergency department because she was found on the toilet passed out. The patient really did not know what was happening. Her son could not offer much more information, and the remainder of the history is obtained from previous records. At the time of my examination, she had denied any headache, fever, chills, chest pain, shortness of breath, hemoptysis or any weight changes. PAST MEDICAL HISTORY: Hypertension, sick sinus syndrome, hyperlipidemia, depression, dementia. PAST SURGICAL HISTORY: Pacemaker, hemorrhoid surgery. ALLERGIES: Bactrim. CURRENT MEDICATIONS: Lists Listed in the MAR. SOCIAL HISTORY: She denies any history of smoking, alcohol or illicit drug use. She states that her son lives with her. FAMILY HISTORY: No history of coronary disease. REVIEW OF SYSTEMS: Twelve point review of systems is as in HPI. Other systems negative. PHYSICAL EXAMINATION: GENERAL: Cooperative, pleasant, elderly female. She is without any respiratory distress. VITAL SIGNS: Temperature 97.0, pulse 50, respirations 18, blood pressure 110/49, and she is sating 96%. HEENT: Atraumatic, normocephalic. Extraocular movements intact. PERRLA. NECK: No masses. CHEST: Clear to auscultation. CARDIOVASCULAR: Regular rate and rhythm. ABDOMEN: Soft. Positive bowel sounds. EXTREMITIES: Trace edema. NEURO: She is awake, alert, oriented x1. : No bladder distention. SKIN: Warm. LABORATORIES AND STUDIES: WBCs 8.99, hemoglobin 12.4, hematocrit 36.4, platelets 213,000. Sodium 142, potassium 3.4, chloride 101, CO2 of 26, BUN is 18, creatinine 1.4, glucose is 133. ASSESSMENT: An 85-year-old female was brought to the emergency department, because she was found unresponsive on the toilet. She was evaluated the ER and due to her presenting symptoms, it was thought that would place her in observation for further evaluation and management. ASSESSMENT: 1. Syncopal episode. 2. History of sick sinus syndrome, status post ICD. 3. Hypertension. 4. Dementia. PLAN: 1. We will admit patient for observation. 2. Put the patient on telemetry. 3. Check orthostatic blood pressure and pulse. 4. We will interrogate pacemaker, and consult Cardiology. 5. We will monitor blood pressure closely. 6. We will restart her home medications. 7. We will put patient on DVT prophylaxis with SCDs. 8. We will continue to follow and reassess. cc: Rasheed Bettencourt MD
[2016-09-26] MEDS ORDERED: ZOFRAN IV PRN (02:45)
[2016-09-26] MEDS ORDERED: KLOR-CON PO ONE ×2 (02:45→08:00)
--- NOTE | 2016-09-26 05:21 | EKG Report ---
Test Performed on : 09/25/2016 8:18:42 PM Test Reason : syncope Blood Pressure : / mmHG Vent. Rate : 050 BPM Atrial Rate : 049 BPM P-R Int : 138 ms QRS Dur : 134 ms QT Int : 520 ms P-R-T Axes : 000 -73 036 degrees QTc Int : 474 ms AV dual-paced rhythm Abnormal ECG When compared with ECG of 13-SEP-2016 06:10, No significant change was found Unconfirmed Result
[2016-09-26 06:20] LABS: MANUAL DIFF NEEDED? NO
[2016-09-26 06:31] LABS: BASO% 0.1 % (0.0-0.8); EOS# 0.07 X1000 (0.0-0.7); EOS% 0.9 % (0.0-10.0); HEMATOCRIT 32.8 % (37.0-47.0); HEMOGLOBIN 10.9 g/dL (12.0-16.0); LYMPH# 1.33 X1000 (1.2-3.4); LYMPH% 17.6 % (20.5-51.1); MCH 29.9 PG (27-31); MCHC 33.2 g/dL (33-37); MCV 90.1 FL (81-99); MONO# 0.55 X1000 (0.11-0.59); MONO% 7.3 % (1.7-9.3); MPV 10.7 FL (7.4-10.4); NEUT% 74.1 % (42.2-75.2); PLT 211 X1000 (130-400); RBC 3.64 XMIL (4.2-5.4)
[2016-09-26 06:50] LABS: CALCIUM 9.3 mg/dL (8.8-10.2); POTASSIUM 2.8 mmol/L (3.5-5.1)
[2016-09-26] MEDS ORDERED: PNEUMOVAX 23 IM ONE (09:00)
[2016-09-26] MEDS: TYLENOL PO PRN (13:47)
[2016-09-26] MEDS: ALDACTONE PO SCH (13:47)
--- NOTE | 2016-09-26 18:40 | CONSULTATION ---
DATE OF CONSULTATION: 09/26/2016 CHIEF COMPLAINT: Syncope. HISTORY: Mrs. Crespo is a pleasant 85-year-old female patient of mine. Was brought to the emergency room by her son because she was found unresponsive in the bathroom. The patient had not reported any change in condition prior to her being found in the toilet unresponsive. Apparently she came back to her senses relatively quickly. She has no pain in the chest or shortness of breath or swelling or any specific new symptoms. The patient was seen in the ER yesterday at about 8:30 p.m. They did an EKG that shows activity of her biventricular pacemaker with DDD activity. Her blood work at that time showed a hemoglobin of 12.4. White count was normal. Prothrombin time was normal. Potassium was a little low at 3.4. BUN 18, creatinine 1.4. Her proBNP level was 1873, which is about four times baseline. Albumin was normal. She was admitted for observation. Telemetry did not reveal any change in rhythm. I am seeing her about 1 o'clock. She is awake. She has no new complaints. She does have some generalized achiness in the joints and bones, which is typical for her. PAST MEDICAL HISTORY: 1. Hypertension for a number of years. 2. She has had several presentations to the hospital for syncope. In fact, in 2016, she was taken to [facility] where they diagnosed sick sinus syndrome. 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 3. She has hyperlipidemia. 4. She had anemia. 5. Depression. 6. Chronic back pain. 7. She also has dementia. 8. She has had paroxysmal atrial fibrillation. 1. PAST SURGICAL HISTORY: She had a pacemaker implantation. It was a biventricular device, [employer].The device was implanted on 02/09/2015. 2. She has had history of duodenal ulcer, gastric ulcer, in May of 2014. 3. She has had hemorrhoidectomy. 4. Cataract extraction. 5. Kidney stone retrieval. SOCIAL HISTORY: She is , retired. She lives with her son. Not a smoker and not a drinker. FAMILY HISTORY: Non contributory for the purposes of CV disease. HOME MEDICATIONS: Home medications at this time included Zocor 20 mg once a day , Zoloft 50 mg daily, Protonix 40 mg twice a day, lisinopril 20 daily, gabapentin 300 mg twice a day, diltiazem 180 mg daily, donepezil 5 mg daily, digoxin 0.125 mg daily, carvedilol 12.5 twice a day, Bumex 1 mg daily, amlodipine 5 mg twice a day. ALLERGIES: Sulfa drugs. REVIEW OF SYSTEMS: Her review of systems is really noncontributory other than the fact that she is gradually getting worse as far as her memory. Cognitive function is worsening. She also has very poor functional status. She barely gets around with a walker. She has a tendency to fall. She has had multiple hospital presentations with syncope and falls. PHYSICAL EXAMINATION: Vital signs: Blood pressure is 133/45, temperature 98.6 , pulse 54, respirations 18. General: She is elderly, awake. No distress. HEENT: No jugular venous distention. No cervical bruit. Chest: Chest shows equal symmetrical breath sounds. No rales are noted. Normal percussion. Heart sounds are regular, rhythmic. She does have a systolic murmur over the aortic area. No rubs or gallops. Abdomen: Nontender, soft. There is a left- sided abdominal bruit. Extremities: Extremities show palpable pulses, although they appear to be diminished. There is no edema. Neurological exam: She moves four extremities , follows commands. IMPRESSION: 1. Patient presenting with recurrent syncope. This is probably vasodepressor. She does have a biventricular device, and she has been admitted to the hospital twice since June. One time was on 07/12/2016 and the second time 09/13/2016. Both times her device was checked, and there was no evidence of any serious arrhythmia at that time of the syncopal episode. It has been found on that device that she had episodes of paroxysmal atrial fibrillation ; however, there is no connection with the syncopal episode. 2. Dementia. 3. History of nonischemic cardiomyopathy. 4. Hypokalemia. 5. Dementia. RECOMMENDATIONS: At this point in time, I would suggest to optimize her electrolytes. I would add spironolactone to her regimen to try to minimize the hypokalemia. We could probably get rid of amlodipine at this point in time since the combination of multiple antihypertensive drugs could be contributing to the vasodepressor syncope. She is already, according to the list of medicines, on two calcium blockers, and there is really no need to have her on two of them. I will probably get rid of her amlodipine and then take it from there. Thank you again for the opportunity to participate in her evaluation. Best regards. cc: Chavez Reyes MD MTDD
--- NOTE | 2016-09-27 07:09 | PROGRESS NOTE ---
DATE: 09/27/2016 SUBJECTIVE: Ms. Crespo did not sleep much last night, but she did state that she feels a little better. She does not feel any dizziness at the present time. OBJECTIVE: Vital Signs: Temperature 98.3 degrees, pulse 50, respirations 16, blood pressure 160/57. Lungs: Clear anterolaterally. Cardiovascular: Regular rhythm and rate without murmur or S3. Abdomen: Soft. Skin: Warm and dry. Urine Output: 1700 mL. LABORATORY DATA: Labs from 09/26/2016, yesterday, were reviewed. Hematocrit was stable at 32, platelet count 211,000. Potassium was supplemented; it was low at 2.8. We will continue to supplement potassium. ASSESSMENT AND PLAN: 1. Syncopal episode. Apparently, she did feel lightheaded before this. She came back to her senses fairly quickly. I have had mixed reports, they did not recognize any change in her before, but whether she could tell she was fading out, I do not know. I suspect it is vasodepressor. She does have a biventricular device. She has been admitted to the hospital twice since Saturday. The first time was on 07/12/2016, and the second time was on 09/15/2016. Both times the device was checked, and it appears to be functioning well, so we will see how she does with physical therapy, low volume. 2. Dementia. 3. History of nonischemic cardiomyopathy. 4. Hypokalemia. We will we will give her some potassium daily. Note she is on spironolactone, which was started yesterday. 5. We will try physical therapy. cc: Rolan Shields MD
[2016-09-27 07:55] LABS: CALCIUM 9.6 mg/dL (8.8-10.2); POTASSIUM 3.4 mmol/L (3.5-5.1)
[2016-09-27] MEDS: ALDACTONE PO SCH (09:28)
[2016-09-27] MEDS: TYLENOL PO PRN (09:28)
--- NOTE | 2016-09-27 09:43 | PROGRESS NOTE ---
DATE: 09/27/2016 CHIEF COMPLAINT: Syncope. SUBJECTIVE: Ms. Crespo had an uneventful night. She denies having any pain anywhere. She ate well, slept well. She has been getting up to a bedside commode without difficulty. OBJECTIVE: Vital signs: Her blood pressure is 160/57, temperature is 97.8, pulse 83, respirations 16. Telemetry indicates that she shows intermittent ventricular pacing. HEENT: Normal. Chest: Very clear to auscultation and percussion. Heart sounds are regular rhythmic. She does have a systolic murmur, 2/6 in intensity, over the aortic area. No gallop is noted. Abdomen: Nontender. No masses, no hepatomegaly. Extremities: Good pulses. Extremities are warm. There is no edema. Neurological exam: She follows commands. Moves all 4 extremities. IMPRESSION: 1. Patient who presented with recurrent syncope. I suspect this is vasodepressor. 2. History of hypertension. 3. Suspected sick sinus syndrome, status post dual-chamber biventricular pacemaker implanted in 01/2015. 4. History of paroxysmal atrial fibrillation and dementia. RECOMMENDATIONS: At this time, I would suggest to provide the patient with SUSANNA stockings. I would suggest to look at her entire medication list and make appropriate adjustments according to her general average systemic blood pressure. I would suggest to her to have a bedside commode at home to minimize her chances of falling in the bathroom. We will follow her at the office upon discharge. Thank you for the opportunity to participate in her evaluation. cc: Chavez Reyes MD
[2016-09-28] MEDS: ALDACTONE PO SCH (08:23)
--- NOTE | 2016-09-28 12:02 | Diag Imaging Result Document ---
PROCEDURE NAME: CHEST-PORTABLE - 09/28/2016 PORTABLE CHEST: COMPARISON: 09/13/2016. FINDINGS: The lungs are well expanded. There is a left-sided pacemaker. The heart is borderline mildly prominent. The vessels are not distended. No pneumonia. No pleural effusions identified. IMPRESSION: Negative chest.
[2016-09-28 13:10] LABS: CALCIUM 10.4 mg/dL (8.8-10.2); MAGNESIUM 1.7 mg/dL (1.5-2.7); POTASSIUM 3.7 mmol/L (3.5-5.1)
[2016-09-28] MEDS ORDERED: NEUTRA-PHOS PO ONE (14:02)
--- NOTE | 2016-09-28 14:31 | PROGRESS NOTE ---
DATE: 09/28/2016 SUBJECTIVE: The patient is resting comfortably in bed. She has no complaints. No acute events noted overnight. OBJECTIVE: Vital Signs: Temperature 98.3 degrees, blood pressure 148/47, heart rate 62, respirations 20, O2 saturations 99% on room air. General: This is an elderly female lying comfortably in bed in no acute distress. Head: Normocephalic, atraumatic. Heart: S1, S2. Normal. Regular rate and rhythm. Lungs: Clear to auscultation bilaterally. Abdomen: Positive bowel sounds. Soft, nontender, nondistended. Extremities: +1 edema. No cyanosis. No calf tenderness. Neurologic: The patient is awake and alert. LABS: Sodium 140, potassium 3.7, chloride 100, CO2 24, BUN 17, creatinine 1.1, glucose 105, phosphorus 2.4, magnesium 1.7. ASSESSMENT AND PLAN: 1. Syncope. The majority of the patient's cardiac medications have been discontinued. She remains on Aldactone. She has had no further syncopal episodes while in the hospital. TEDs have been ordered as directed by the rock crusher. 2. Hypophosphatemia. Will replace the patient's phosphorus. 3. Hypertension. Continue to monitor closely. Appears to be stable at this time. 4. Debility. The patient is very weak. Will consult serves social service coordinator to arrange for rehab placement. cc: Ketty Mancuso MD
[2016-09-28 15:02] LABS: URINE MICRO REVIEW NEEDED? NO; URINE SOURCE CATH
[2016-09-28 15:11] LABS: BILIRUBIN URINE NEGATIVE (NEGATIVE); BLOOD URINE NEGATIVE (NEGATIVE); COLOR YELLOW; GLUCOSE URINE NEGATIVE (NEGATIVE); LEUKOCYTES URINE NEGATIVE (NEGATIVE); NITRITE URINE NEGATIVE (NEGATIVE); PH URINE 6.5; PROTEIN URINE NEGATIVE (NEGATIVE); SP GRAVITY URINE 1.011; TURBIDITY URINE CLEAR (CLEAR); UROBILINOGEN URINE NORMAL (NORMAL)
[2016-09-28 15:12] LABS: UR EPITHELIAL CELLS <10 /HPF (<10); URINE BACTERIA NEGATIVE /HPF; URINE RBC <10 /HPF (<10); URINE WBC <10 /HPF (<10)
[2016-09-28 23:54] LABS: CALCIUM 10.1 mg/dL (8.8-10.2); MAGNESIUM 1.7 mg/dL (1.5-2.7); POTASSIUM 3.9 mmol/L (3.5-5.1)
[2016-09-29 05:54] LABS: HEMATOCRIT 31.7 % (37.0-47.0); HEMOGLOBIN 10.5 g/dL (12.0-16.0); MCH 30.4 PG (27-31); MCHC 33.1 g/dL (33-37); MCV 91.9 FL (81-99); MPV 10.3 FL (7.4-10.4); RBC 3.45 XMIL (4.2-5.4)
[2016-09-29 06:09] LABS: CALCIUM 9.6 mg/dL (8.8-10.2); POTASSIUM 3.8 mmol/L (3.5-5.1)
[2016-09-29] MEDS: ALDACTONE PO SCH (10:04)
--- NOTE | 2016-09-29 13:32 | PROGRESS NOTE ---
DATE: 09/29/2016 SUBJECTIVE: The patient has no complaints at this time. No acute events noted overnight. OBJECTIVE: Vital Signs: Temperature 98 degrees, blood pressure 128/50, heart rate 60, respirations 14, O2 saturations 96% on room air. General: This is an elderly female, lying in bed, in no acute distress. Head: Normocephalic, atraumatic. Heart: S1, S2. Normal. Regular rate and rhythm. Lungs: Clear to auscultation bilaterally. Abdomen: Positive bowel sounds. Soft, nontender, nondistended. Extremities: No edema. No cyanosis. Neurologic: The patient is alert and oriented x3. LABS: Reviewed and within normal limits. ASSESSMENT AND PLAN: 1. Syncope. Resolved. 2. Hypertension. Controlled. 3. Generalized weakness with debility. Continue with physical therapy. 4. Disposition. Currently awaiting rehab placement. cc: Ketty Mancuso MD
[2016-09-30 06:48] LABS: AGAP 10; BUN 14 mg/dL (8-22); CALCIUM 9.7 mg/dL (8.8-10.2); CHLORIDE 108 mmol/L (98-107); COSMO 284; POTASSIUM 3.8 mmol/L (3.5-5.1); SODIUM 143 mmol/L (136-145); TCO2 25 mmol/L (25-35)
[2016-09-30] MEDS: ALDACTONE PO SCH (09:13)
--- NOTE | 2016-09-30 10:01 | PROGRESS NOTE ---
DATE: 09/30/2016 SUBJECTIVE DATA: Ms. Crespo has had no acute events noted overnight. She is resting in bed comfortably without distress. She has no acute complaints at this time. She is complaining of some mild arthritis pain. OBJECTIVE DATA: Vital Signs: Blood pressure is 134/44, heart rate 57, respiratory rate 20, O2 saturation 98% on room air. Temperature is 98.5 degrees. General: This is an elderly, female, lying in a hospital bed in no acute distress. Neurologic: Nonfocal. She follows commands without focal deficits. She is slightly confused as to the year. Otherwise, she is oriented. HEENT: Head is atraumatic and normocephalic. Her pupils are equal, round, and reactive to light. Oral mucosa is moist. Neck: Supple. Trachea is midline. Chest: Clear to auscultation bilaterally. CV: Regular rate and rhythm. S1 and S2 are noted. No murmurs, gallops, clicks, rubs. GI: Soft, nondistended, nontender. Extremities: Without edema, clubbing, or cyanosis. Pulses are palpable bilaterally. Diagnostic Data: Sodium 143, potassium 3.8, chloride 108, CO2 25, anion gap 10, BUN 14, creatinine 0.8, glucose 80, calcium 9.7. ASSESSMENT AND PLAN: 1. Syncope: Resolved. Cardiology is following and has discontinued a host of cardiac medications as likely contributing to her syncope. Overall, this is stable. 2. Hypertension, chronic and stable: Continue home medications. 3. Generalized weakness/asthenia: Continue physical therapy. Patient will be going to rehabilitation. 4. Deep vein thrombosis prophylaxis with TEDs. 5. Disposition. Awaiting rehabilitation placement. Dictated by DANI Dailey for Ketty Mancuso MD cc: DANI Dailey MD
[2016-10-01 06:44] LABS: CALCIUM 9.5 mg/dL (8.8-10.2); POTASSIUM 3.9 mmol/L (3.5-5.1)
[2016-10-01] MEDS: ALDACTONE PO SCH (10:13)
--- NOTE | 2016-10-01 16:37 | PROGRESS NOTE ---
DATE: 10/01/2016 SUBJECTIVE: The patient has no focal complaints. OBJECTIVE: Blood pressure 136/51, heart rate of 59, respiratory rate 16, temperature 98.7 degrees. Cardiovascular: Regular rate and rhythm. Pulmonary: Bilateral breath sounds. Clear to auscultation. GI soft, nontender, nondistended. Bowel sounds are positive. LABORATORY DATA: Chemistries look okay. CBC looks good. Hemoglobin and hematocrit a little low at 10 and 31. PROBLEM LIST: 1. Syncope. Unclear etiology here, but likely related to multiple medications. Now, she has just been reduced to just Aldactone, and she was on multiple medications before including Dig, Cardizem, Coreg, Bumex, Norvasc, lisinopril. Now, she is just on Aldactone. I would like to reinstitute some beta kathy medications; however, she is bradycardic, so we will institute a little bit of low-dose Lopressor if she tolerates it. I would like to have Cardiology re- evaluate her medications and follow. We will pursue carotid ultrasound and monitor. 2. Anemia. We will continue to monitor. I will probably check her iron studies and follow. 3. Weakness. We will continue with PT. She has no available rehab days so she will have to go home with home health. We will pursue that, and I anticipate discharge tomorrow if she is stable. cc: Bossman Paris MD
--- NOTE | 2016-10-01 18:23 | Carotid Study ---
DATE: 10/01/2016 PROCEDURE: Carotid duplex imaging. REFERRING PHYSICIAN: Dr. Paris INTERPRETING PHYSICIAN: Dr. Rocha TECH: Simon INDICATIONS: OBSERVED DATA RIGHT LEFT Brachial Blood Pressure Carotid Pulse Bruits: Carotid/Sub DIAGRAM OF ULTRASOUND IMAGING R L RIGHT INT EXT INT EXT LEFT Wojciech (cm/s) Wojciech (cm/s) Subclavian 46/0 Subclavian 93/0 CCA Proximal 50/2 CCA Proximal 53/3 CCA Distal 50/4 CCA Distal 55/4 Bulb 31/3 Bulb 54/9 ICA Proximal 44/9 ICA Proximal 57/9 ICA Mid 60/12 ICA Mid 61/9 ICA Distal 53/13 ICA Distal 61/11 ECA 71/5 ECA 81/0 Vertebral Antegrade, 39/6 Vertebral Antegrade, 53/5 ICA/CCA Ratio 1.2 ICA/CCA Ratio 1.1 % Stenosis 0-39 % Stenosis 0-39 FINDINGS: Tiny plaque is present in the right bulb. No significant stenosis is present. Left thyroid lobe heterogeneous mass is noted. PHYSICIAN INTERPRETATION: No significant plaque disease identified. There is no significant stenosis present. There is antegrade vertebral flow bilaterally. Heterogeneous left thyroid mass is noted. cc: MD Bossman Munroe MD
[2016-10-01] MEDS ORDERED: LOPRESSOR PO SCH (21:00)
[2016-10-01] MEDS: LOPRESSOR PO SCH (21:33)
[2016-10-02 05:36] LABS: HEMATOCRIT 33.1 % (37.0-47.0); HEMOGLOBIN 10.9 g/dL (12.0-16.0); MCH 30.4 PG (27-31); MCHC 32.9 g/dL (33-37); MCV 92.5 FL (81-99); MPV 10.2 FL (7.4-10.4); RBC 3.58 XMIL (4.2-5.4)
[2016-10-02 05:51] LABS: CALCIUM 9.4 mg/dL (8.8-10.2); DIGOXIN 0.4 ng/mL (0.9-2.0); MAGNESIUM 1.9 mg/dL (1.5-2.7); POTASSIUM 3.9 mmol/L (3.5-5.1)
[2016-10-02 08:01] VITALS: BP 112/46
[2016-10-02] MEDS: LOPRESSOR PO SCH ×2 (09:44→10:44)
[2016-10-02] MEDS: ALDACTONE PO SCH (09:44)
--- NOTE | 2016-10-02 18:59 | DISCHARGE SUMMARY ---
ADMISSION DATE: 09/27/2016 DISCHARGE DATE: 10/02/2016 CONSULTATIONS: Dr. Reyes with Cardiology. PERTINENT PROCEDURES: Carotid Dopplers showed no significant plaque disease identified and no significant stenosis present. There is anterograde vertebral flow bilaterally. Heterogeneous left thyroid mass noted. DISCHARGE DIAGNOSES: 1. Syncope resolved. Followed by Cardiology. Patient is being discharged on low-dose Lopressor as well as spironolactone. She will follow up with cardiology in 2 weeks where they will reintroduce her medications slowly, felt to be secondary to vasovagal response stable. No more syncopal episodes since admission. 2. Hypertension chronic and stable. 3. Generalized weakness. The patient being discharged home with home health and physical therapy. We have referred rehab however due to patient's insurance she was not available for any more rehab days. 4. Sick sinus syndrome, status post pacemaker placement at a rate of 50. It was interrogated while she was here in the hospital. 5. Depression and dementia stable. HOSPITAL COURSE: Briefly, Ms. Crespo is an 85-year-old female who has a past medical history of hypertension, sick sinus syndrome, status post ICD interrogated while in the hospital. This admission her rate is set at 50. Hyperlipidemia, depression and dementia. She was brought to the ED because she was found to be on the toilet passed out. The patient was unable to give any information. Her son could not offer much more information. The patient was admitted for a syncopal episode. Monitored on telemetry with orthostatics, blood pressures and pulse checks. Consult for Cardiology as well as her pacemaker was interrogated. The patient' s electrolytes were optimized. Spironolactone was added to her regimen to minimize her hypokalemia , and she was initiated back on a low-dose beta kahty. I spoke with Cardiology. They will reinitiate patient's plethora of other cardiac medications slowly. They will introduce those back in 2-3 weeks. We did have the patient work with physical therapy. Care Coordinator was consulted for help with rehab placement. However secondary to her insurance the patient has used up all her rehab days so she will be discharged with home health and physical therapy. The patient is appropriate for discharge home today. VITAL SIGNS: Temperature is 97.7 degrees, heart rate 55, respirations 18, blood pressure 112/46, O2 is 98% on room air. PHYSICAL EXAMINATION: General: Ms. Crespo is an 85-year-old female , who is sitting up in the chair in no acute distress. HEENT: Atraumatic, normocephalic. PERRLA. Neck: Supple. Trachea midline. CV: No murmurs, gallops, rubs noted. Respiratory: Lung sounds clear to auscultation. Nonlabored breathing. GI: Soft, nontender, nondistended. Positive bowel sounds 4 quadrants. Extremities: Negative for edema. Neurologic: No focal deficits noted. DISCHARGE DIET: Healthy heart. DISCHARGE MEDICATIONS: 1. Vitamin D3, 1000 units p.o. daily. 2. Donepezil 5 mg p.o. daily. 3. Neurontin 300 mg p.o. b.i.d. 4. Lopressor 12.5 mg p.o. b.i.d. 5. Protonix 40 mg p.o. b.i.d. 6. Zoloft 50 mg p.o. q.a.m. 7. Zocor 20 mg p.o. q.p.m. 8. Aldactone 25 mg p.o. daily. DISPOSITION: The patient is being discharged home with home health and physical therapy. DISCHARGE INSTRUCTIONS: The patient has been instructed that she will not take all her cardiac medicines or diuretics. She has been educated on Lopressor as well as spironolactone and that she will need to keep her follow-up appointment with Dr. Reyes in 2-3 weeks as well as follow up with her primary care physician, Dr. Rose. The patient can return to the ED for any worsening of symptoms. DISCHARGE TIME: Thirty minutes. Dictated by DANI Miranda for Bossman Paris MD cc: MD Yusra Diane MD pt examined, agree with above APENOT MTDD
== END 2016-10-02 13:14 | disposition home health service (06) ==
LOC: SUPCPDRO → 4N 20:07 → ED 20:07 → SUATTDRO 09-26 00:13 → SUPCPDRO 09-26 00:13 → SUATTDRO 09-27 14:29
PROVIDERS: ATTEND Internal Medicine